=== PATIENT | female | born 1980 | race Caucasian/White ===

== ENCOUNTER 2017-05-18 11:52 | Observation (INO) | payer OTHER, SELFPAY ==
[2017-05-18 12:21] VITALS: BP 140/89; PULSE 111; RESP 20; TEMP 99.9; O2SAT 100
[2017-05-18] MEDS ORDERED: Sodium Chloride 0.9% 1,000 ML IV STA (12:47)
--- NOTE | 2017-05-18 12:50 | ED PDOC ---
HPI: General Adult Time Seen by Provider: 05/18/17 12:27 Chief Complaint (Nursing): Fever Chief Complaint (Provider): Fever and flank pain History Per: Patient History/Exam Limitations: no limitations Onset/Duration Of Symptoms: Days (x 3) Current Symptoms Are (Timing): Still Present Additional Complaint(s): Partha is a 37 y/o female who presents to the ED for complaints of fever, body aches, headache, and right flank pain, ongoing since Thursday. She also reports having increased urinary frequency and strong odor to urine. Denies any associated cough, nasal congestion, nausea, vomiting, diarrhea, abdominal pain, chest pain, hematuria, incontinence, or history of kidney stones. Patient describes having a persistent subjective fever but has not taken her temperature. Admits to taking Advil with no relief. Danish interpretation was provided by foreign language interpreter [id number]. PMD: Olaf Guzman Past Medical History Reviewed: Historical Data, Nursing Documentation, Vital Signs Vital Signs: Last Vital Signs Temp 99.9 F H 05/18/17 12:16 Pulse 111 H 05/18/17 12:16 Resp 20 05/18/17 12:16 BP 140/89 05/18/17 12:16 Pulse Ox 100 05/18/17 16:18 - Medical History PMH: No Chronic Diseases - Surgical History Surgical History: No Surg Hx - Family History Family History: States: Unknown Family Hx - Social History Current smoker - smoking cessation education provided: No Alcohol: Occasional Drugs: Denies - Home Medications Home Medications: Ambulatory Orders Medication Instructions Recorded Acetaminophen with Codeine 1 tab PO Q6 PRN #15 tab 05/20/15 [Tylenol with Codeine No. 3 300 mg-30 mg] Ciprofloxacin HCl [Cipro] 500 mg PO BID #13 tab 12/25/15 Dicyclomine [Bentyl] 20 mg PO TID #15 tab 12/25/15 Famotidine [Pepcid] 20 mg PO BID #10 tab 12/25/15 Ondansetron [Zofran] 4 mg PO Q8H PRN #10 tab 12/25/15 - Allergies Allergies/Adverse Reactions: Allergies Allergy/AdvReac Type Severity Reaction Status Date / Time No Known Allergies Allergy Verified 12/24/15 22:01 Review of Systems ROS Statement: Except As Marked, All Systems Reviewed And Found Negative Constitutional: Positive for: Fever, Other (Myalgias) Cardiovascular: Negative for: Chest Pain Respiratory: Negative for: Cough Gastrointestinal: Negative for: Nausea, Vomiting, Abdominal Pain, Diarrhea Genitourinary Female: Positive for: Frequency, Other (strong odor to urine). Negative for: Incontinence, Hematuria Musculoskeletal: Positive for: Back Pain (right flank pain) Neurological: Positive for: Headache Physical Exam - Reviewed Nursing Documentation Reviewed: Yes Vital Signs Reviewed: Yes - Physical Exam Appears: Positive for: Non-toxic, No Acute Distress Head Exam: Positive for: ATRAUMATIC, NORMAL INSPECTION, NORMOCEPHALIC Skin: Positive for: Normal Color, Warm, Dry Eye Exam: Positive for: EOMI, Normal appearance, PERRL ENT: Positive for: Normal ENT Inspection Neck: Positive for: Normal, Painless ROM, Supple Cardiovascular/Chest: Positive for: Regular Rate, Rhythm. Negative for: Murmur Respiratory: Positive for: Normal Breath Sounds. Negative for: Accessory Muscle Use, Respiratory Distress Gastrointestinal/Abdominal: Positive for: Normal Exam, Soft. Negative for: Tenderness Back: Positive for: Normal Inspection, R CVA Tenderness (Mild) Extremity: Positive for: Normal ROM, Capillary Refill (< 2 sec). Negative for: Pedal Edema, Deformity Neurologic/Psych: Positive for: Alert, Oriented. Negative for: Motor/Sensory Deficits - Laboratory Results Result Diagrams: 05/18/17 13:05 05/18/17 13:05 - ECG O2 Sat by Pulse Oximetry: 100 (RA) Pulse Ox Interpretation: Normal Medical Decision Making Medical Decision Making: Time: 12:47 Initial Plan: --Labs pending --Pending CT Abdomen/Pelvis --Started NS IV 1000 ml at 1000 mls/hr --Given Toradol 15 mg IV --Patient will be admitted to ED-Observation for right flank pain and fever Scribe Attestation: Documented by Maru Leiva, acting as a scribe for Aram Shah PA-C. Provider Francescoibe Attestation: All medical record entries made by the Wyatt were at my direction and personally dictated by me. I have reviewed the chart and agree that the record accurately reflects my personal performance of the history, physical exam, medical decision making, and the department course for this patient. I have also personally directed, reviewed, and agree with the discharge instructions and disposition. ED OBSERVATION Discharge: Yes Date of observation admission: 05/18/17 Time of observation admission: 12:47 - Observation admission statement Patient is being placed in observation because:: Right flank pain and fever - Progress Note Progress Note: 05/18/17 13:50 Pt. states pain has improved but still present. Pending CT. Time: 15:20 Patient resting comfortably. Vital signs stable. Still pending CT Time: 16:03 CT Abdomen/Pelvis: FINDINGS: LOWER THORAX: Unremarkable. LIVER: Stable hepatic mass incompletely visualized on this unenhanced examination. The mass measures 3.8 x 4.8 cm. GALLBLADDER AND BILE DUCTS: Unremarkable. PANCREAS: Unremarkable. No ductal dilatation. SPLEEN: Unremarkable. No splenomegaly. ADRENALS: Unremarkable. KIDNEYS AND URETERS: Unremarkable. No hydronephrosis. BLADDER: Unremarkable. No calculus. REPRODUCTIVE: Unremarkable. APPENDIX: Unremarkable. Normal appendix. STOMACH AND BOWEL: Unremarkable. No obstruction. No gross mural thickening. PERITONEUM: Unremarkable. No significant fluid collection. No free air. LYMPH NODES: Unremarkable. No enlarged lymph nodes. VASCULATURE: Unremarkable. No aortic aneurysm. BONES: No acute fracture. OTHER FINDINGS: None . IMPRESSION: No acute findings related to/accounting for the clinical presentation. Additional benign and/or incidental findings described above. No significant interval change compared to the prior examination(s). 05/18/17 16:51 Pt. informed of results and reports feeling much better. Disposition - Clinical Impression Clinical Impression: UTI (urinary tract infection) - Patient ED Disposition Is Patient to be Admitted: No - Disposition Disposition: Routine/Home Disposition Time: 16:51 Condition: STABLE
[2017-05-18 13:15] LABS: BASO % 0.8 % (0.0-2.0); EOS % 0.1 % (0.0-4.0); HEMATOCRIT 36.5 % (34.0-47.0); LYMPH % 24.1 % (20.0-40.0); MEAN CELL VOLUME 72.5 fl (81.0-99.0); MEAN CORPUSCULAR HEMOGLOBIN 22.6 pg (27.0-31.0); MEAN CORPUSCULAR HGB CONC 31.1 g/dL (33.0-37.0); MEAN PLATELET VOLUME 8.5 fl (7.2-11.7); MONO # 0.6 K/uL (0.0-0.8); MONO % 15.4 % (0.0-10.0); NEUT # 2.5 K/uL (1.8-7.0); NEUT % 59.6 % (50.0-75.0); NRBC % 0.1 % (0.0-0.0); RED CELL DISTRIBUTION WIDTH 17.1 % (11.5-14.5); WHITE BLOOD COUNT 4.2 K/uL (4.8-10.8)
[2017-05-18 13:18] LABS: RBC URINE 6 /hpf (0-3); URINE BACTERIA MOD (<OCC); URINE BILIRUBIN NEGATIVE (NEGATIVE); URINE BLOOD NEGATIVE (NEGATIVE); URINE COLOR YELLOW (YELLOW); URINE GLUCOSE (UA) NEG (Normal); URINE KETONE NEGATIVE (NEGATIVE); URINE LEUKOCYTE ESTERASE SMALL Leu/uL (Negative); URINE PROTEIN 30 mg/dL (NEGATIVE); URINE UROBILINOGEN 0.2-1.0 mg/dL (0.2-1.0); WBC URINE 4 /hpf (0-5)
[2017-05-18 13:24] LABS: VENOUS BLOOD GAS BASE EXCESS 0.3 mmol/L (0.0-2.0); VENOUS BLOOD GAS PCO2 45 mmHg (40-60); VENOUS BLOOD PH 7.37 (7.32-7.43)
[2017-05-18 13:30] LABS: ALB/GLOB RATIO 1.1 (1.0-2.1); ALKALINE PHOSPHATASE 102 U/L (38-126); ALT/SGPT 80 U/L (9-52); AST/SGOT 89 U/L (14-36); BILIRUBIN,TOTAL 0.3 mg/dl (0.2-1.3); BLOOD UREA NITROGEN 9 mg/dl (7-17); CALCIUM 8.6 mg/dL (8.4-10.2); CARBON DIOXIDE 24 mmol/L (22-30); CHLORIDE 101 mmol/L (98-107); GFR AFRICAN-AMERICAN > 60; GLUCOSE,RANDOM 95 mg/dL (65-105); POTASSIUM 4.2 MMOL/L (3.6-5.0); SODIUM 135 mmol/l (132-148); TOTAL PROTEIN 7.7 G/DL (6.3-8.2)
--- NOTE | 2017-05-18 15:58 | CT ---
PROCEDURE: CT Abdomen and Pelvis without intravenous or oral contrast HISTORY: R flank pain, urinary frequency COMPARISON: 12/25/2015. CT scan abdomen and pelvis. TECHNIQUE: Technique Contiguous axial images of the abdomen and pelvis without intravenous or oral contrast. Radiation dose: Total exam DLP = mGy-cm. This CT exam was performed using one or more of the following dose reduction techniques: Automated exposure control, adjustment of the mA and/or kV according to patient size, and/or use of iterative reconstruction technique. FINDINGS: LOWER THORAX: Unremarkable. LIVER: Stable hepatic mass incompletely visualized on this unenhanced examination. The mass measures 3.8 x 4.8 cm. GALLBLADDER AND BILE DUCTS: Unremarkable. PANCREAS: Unremarkable. No ductal dilatation. SPLEEN: Unremarkable. No splenomegaly. ADRENALS: Unremarkable. KIDNEYS AND URETERS: Unremarkable. No hydronephrosis. BLADDER: Unremarkable. No calculus. REPRODUCTIVE: Unremarkable. APPENDIX: Unremarkable. Normal appendix. STOMACH AND BOWEL: Unremarkable. No obstruction. No gross mural thickening. PERITONEUM: Unremarkable. No significant fluid collection. No free air. LYMPH NODES: Unremarkable. No enlarged lymph nodes. VASCULATURE: Unremarkable. No aortic aneurysm. BONES: No acute fracture. OTHER FINDINGS: None . IMPRESSION: No acute findings related to/accounting for the clinical presentation. Additional benign and/or incidental findings described above. No significant interval change compared to the prior examination(s).
== END 2017-05-18 17:15 | disposition home or self-care (01) ==
LOC: H.ER 11:52 → H.EROBSV 12:47
PROVIDERS: ADMIT Emergency Medicine; ATTEND Emergency Medicine
DX: N39.0 Urinary tract infection, site not specified (principal)

== ENCOUNTER 2018-03-25 11:49 | Emergency (ER) | payer OTHER ==
[2018-03-25 12:00] VITALS: BP 138/78; PULSE 82; RESP 16; TEMP 97.5; O2SAT 100
--- NOTE | 2018-03-25 12:25 | ED PDOC ---
HPI: General Adult Time Seen by Provider: 03/25/18 12:10 Chief Complaint (Nursing): Abnormal Skin Integrity Chief Complaint (Provider): Abnormal skin integrity History Per: Patient History/Exam Limitations: language barrier (translated by gladis) Onset/Duration Of Symptoms: Days (x1) Current Symptoms Are (Timing): Still Present Additional Complaint(s): Partha Singh is a 38 year old female, with no significant past medical history, who presents to the emergency department complaining of a painful bruise in her right buttocks onset since last night. Patient reports she got her menses last night, and for the past x2 months on the first day of her menses, patient states she feels like a vein pops and leaves a bruise in her right buttocks. Patient states this is her 3rd time with the same problem and usually it resolves on its own but today the bruise remained which prompted ED visit. She denies any fever, chills, or other medical complaints. PMD: None provided Past Medical History Reviewed: Historical Data, Nursing Documentation, Vital Signs Vital Signs: Last Vital Signs Temp 97.5 F L 03/25/18 11:58 Pulse 82 03/25/18 11:58 Resp 16 03/25/18 11:58 BP 138/78 03/25/18 11:58 Pulse Ox 100 03/25/18 12:34 - Medical History PMH: No Chronic Diseases - Surgical History Surgical History: No Surg Hx - Family History Family History: States: Unknown Family Hx - Social History Current smoker - smoking cessation education provided: No Alcohol: Social Drugs: Denies - Home Medications Home Medications: Ambulatory Orders Medication Instructions Recorded Acetaminophen with Codeine 1 tab PO Q6 PRN #15 tab 05/20/15 [Tylenol with Codeine No. 3 300 mg-30 mg] Ciprofloxacin HCl [Cipro] 500 mg PO BID #13 tab 12/25/15 Dicyclomine [Bentyl] 20 mg PO TID #15 tab 12/25/15 Famotidine [Pepcid] 20 mg PO BID #10 tab 12/25/15 Ondansetron [Zofran] 4 mg PO Q8H PRN #10 tab 12/25/15 Naproxen [Naprosyn] 500 mg PO BID PRN #30 tab 05/18/17 Nitrofurantoin Macrocrystals 100 mg PO BID #14 cap 05/18/17 [Macrobid] - Allergies Allergies/Adverse Reactions: Allergies Allergy/AdvReac Type Severity Reaction Status Date / Time No Known Allergies Allergy Verified 12/24/15 22:01 Review of Systems ROS Statement: Except As Marked, All Systems Reviewed And Found Negative Constitutional: Negative for: Fever, Chills Skin: Positive for: Bruising (right buttocks) Physical Exam - Reviewed Nursing Documentation Reviewed: Yes Vital Signs Reviewed: Yes - Physical Exam Appears: Positive for: Non-toxic, No Acute Distress Head Exam: Positive for: ATRAUMATIC, NORMOCEPHALIC Skin: Positive for: Normal Color, Warm, Dry Eye Exam: Positive for: Normal appearance Neck: Positive for: Painless ROM Respiratory: Negative for: Respiratory Distress Back: Positive for: Other (Ecchymotic area 5cm diameter around right medial glute. Tender to palpation. No palpable abscess formation or mass) Extremity: Positive for: Normal ROM (upper and lower extremities). Negative for : Deformity, Swelling Neurologic/Psych: Positive for: Alert, Oriented. Negative for: Motor/Sensory Deficits - ECG O2 Sat by Pulse Oximetry: 100 (RA) Pulse Ox Interpretation: Normal Medical Decision Making Medical Decision Making: Time: 12:10 Initial Impression: Initial Plan: Scribe Attestation: Documented by Dillon Jones, acting as a scribe for Margarita Ordonez PA-C Provider Scribe Attestation: All medical record entries made by the Scribe were at my direction and personally dictated by me. I have reviewed the chart and agree that the record accurately reflects my personal performance of the history, physical exam, medical decision making, and the department course for this patient. I have also personally directed, reviewed, and agree with the discharge instructions and disposition. Disposition - Clinical Impression Clinical Impression: Skin lesion - Patient ED Disposition Is Patient to be Admitted: No Counseled Patient/Family Regarding: Diagnosis, Need For Followup, Rx Given - Disposition Referrals: Milan Winter MD [Staff Provider] - Disposition: Routine/Home Disposition Time: 13:09 Condition: STABLE Additional Instructions: Please follow-up with quill winder for further evaluation. Instructions: Skin Biopsy Forms: [facility] ([place] Citizen) Print Language: VIET[place]ESE
== END 2018-03-25 13:40 | disposition home or self-care (01) ==
LOC: H.ER 11:49
DX: L98.9 Disorder of the skin and subcutaneous tissue, unspecified (principal)